=== PATIENT | male | born 1980 | race Native Hawaiian/Other Pacific Islander ===

== ENCOUNTER 2017-04-18 17:48 | Emergency (ER) | payer OTHER ==
[2017-04-18 18:04] VITALS: BMI 27.1
[2017-04-18 18:13] VITALS: BP 155/98; PULSE 90; RESP 18; TEMP 98.5; O2SAT 98
--- NOTE | 2017-04-18 18:43 | ED PDOC ---
Arrival/HPI - General Chief Complaint: ENT Problem Time Seen by Provider: 04/18/17 18:31 Historian: Patient - History of Present Illness Narrative History of Present Illness (Text): 04/18/17 18:40 36yo male with no PMHx who present with complaint of left hearing loss/eccho on his left ear s/p cleaning his ear wit hydrogen peroxide. States his cleaned the ear, but he has being having some hearing loss on the ear prior to cleaning the ear. Denies bleeding, pain, dizziness, any other complaint. Past Medical History - Provider Review Nursing Documentation Reviewed: Yes - Infectious Disease Hx of Infectious Diseases: None - Cardiac Hx Cardiac Disorders: No - Pulmonary Hx Respiratory Disorders: No - Neurological Hx Seizures: Yes Other/Comment: Brain CA - Stage 2 astrocytoma - HEENT Hx Blind: Yes (L eye) - Renal Hx Renal Disorder: No - Endocrine/Metabolic Hx Endocrine Disorders: No - Hematological/Oncological Hx Cancer: Yes - Integumentary Hx Dermatological Disorder: No - Musculoskeletal/Rheumatological Hx Musculoskeletal Disorders: No - Gastrointestinal Other/Comment: Liver problems - Genitourinary/Gynecological Hx Genitourinary Disorders: No - Psychiatric Hx Anxiety: Yes Hx Post Traumatic Stress Disorder: Yes Hx Substance Use: No - Surgical History Other/Comment: Brain biopsy - Anesthesia Hx Anesthesia: Yes Hx Anesthesia Reactions: No Hx Malignant Hyperthermia: No Family/Social History - Physician Review Nursing Documentation Reviewed: Yes Family/Social History: Unknown Family HX Smoking Status: Never Smoked Hx Alcohol Use: No Hx Substance Use: No Allergies/Home Meds Allergies/Adverse Reactions: Allergies No Known Allergies Allergy (Verified 04/18/17 18:05) Home Medications: Home Meds Medication Instructions Recorded Confirmed Levetiracetam [Keppra] 500 mg PO DAILY 04/18/17 04/18/17 Review of Systems - Physician Review All systems were reviewed & negative as marked: Yes - Review of Systems Constitutional: Normal Eyes: Normal ENT: Other (Left hearing loss/eccho) Respiratory: Normal Cardiovascular: Normal Gastrointestinal: Normal Genitourinary Male: Normal Musculoskeletal: Normal Skin: Normal Neurological: Normal Endocrine: Normal Hemo/Lymphatic: Normal Psychiatric: Normal Physical Exam Vital Signs Reviewed: Yes Vital Signs Temp Pulse Resp BP Pulse Ox 04/18/17 17:49 98.5 F 90 18 155/98 H 98 Temperature: Afebrile Blood Pressure: Normal Pulse: Regular Respiratory Rate: Normal Appearance: Positive for: Well-Appearing, Non-Toxic, Comfortable Pain Distress: None Mental Status: Positive for: Alert and Oriented X 3 - Systems Exam Head: Present: Atraumatic, Normocephalic Pupils: Present: PERRL Extroacular Muscles: Present: EOMI Conjunctiva: Present: Normal Ears: Present: Normal, NORMAL TM, Normal Canal. No: Erythema, TM Bulging, Fluid , TM Perf Mouth: Present: Moist Mucous Membranes Neck: Present: Normal Range of Motion Respiratory/Chest: Present: Clear to Auscultation, Good Air Exchange. No: Respiratory Distress, Accessory Muscle Use Cardiovascular: Present: Regular Rate and Rhythm, Normal S1, S2. No: Murmurs Abdomen: Present: Normal Bowel Sounds. No: Tenderness, Distention, Peritoneal Signs Back: Present: Normal Inspection Upper Extremity: Present: Normal Inspection. No: Cyanosis, Edema Lower Extremity: Present: Normal Inspection. No: Edema Neurological: Present: GCS=15, CN II-XII Intact, Speech Normal Skin: Present: Warm, Dry, Normal Color. No: Rashes Psychiatric: Present: Alert, Oriented x 3, Normal Insight, Normal Concentration Medical Decision Making ED Course and Treatment: 04/18/17 18:42 Pt denies pain and physical exam was benign. He notes that echo started prior to removing wax from the ear. He is referred to ENT. Disposition/Present on Arrival - Present on Arrival Any Indicators Present on Arrival: No History of DVT/PE: No History of Uncontrolled Diabetes: No Urinary Catheter: No History of Decub. Ulcer: No History Surgical Site Infection Following: None - Disposition Have Diagnosis and Disposition been Completed?: Yes Diagnosis: Tinnitus Disposition: HOME/ ROUTINE Disposition Time: 18:45 Patient Plan: Discharge Condition: STABLE Discharge Instructions (ExitCare): Tinnitus (ED) Additional Instructions: Follow up with ENT Return to ED for any new or worsening symptoms Referrals: Juanjose Henning DO [[facility]] - Follow up with primary
== END 2017-04-18 19:15 | disposition home or self-care (01) ==
LOC: ED 17:48
DX: H93.19 Tinnitus, unspecified ear (principal)